=== PATIENT | female | born 1980 | race Caucasian/White ===

== ENCOUNTER 2025-03-13 07:10 | Outpatient (CLI) | payer BC, SELFPAY ==
[2025-03-13 08:45] LABS: Basophils Absolute Auto 0.1 K/mm3 (0.0-0.1); Basophils Percent Auto 0.9 % (0.2-1.2); Eosinophils Absolute Auto 0.1 K/mm3 (0-0.3); Eosinophils Percent Auto 0.9 % (0-4.4); Hematocrit 44.6 % (37.0-47.0); Immature Granulocyte Absolute 0.07 K/mm3 (0.00-0.031); Immature Granulocyte Percent A 0.5 % (0-0.5); Lymphocytes Absolute Auto 3.33 K/mm3 (0.9-3.2); Lymphocytes Percent Auto 25.1 % (18.3-44.2); Mean Corpuscular HGB Conc 31.4 g/dl (32-36); Mean Corpuscular Hemoglobin 28.2 pg (26-34); Mean Corpuscular Volume 89.7 fl (80-100); Monocytes Absolute Auto 0.9 K/mm3 (0.1-0.6); Monocytes Percent Auto 6.8 % (2.6-8.5); Neutrophils Absolute Auto 8.7 K/mm3 (1.3-6.7); Neutrophils Percent Auto 65.8 % (45.5-73.1); Platelet Count Result 360 k/mm3 (150-375); Red Blood Count 4.97 M/mm3 (4.2-5.4); Red Cell Distribution Width 16.3 % (11.5-14.5); White Blood Count 13.3 K/mm3 (4.5-10.0)
[2025-03-13 09:01] LABS: Alanine Aminotransferase 26 U/L (6-35); Albumin Level 3.9 g/dL (3.5-5.1); Alkaline Phosphatase 62 U/L (38-126); Anion Gap 10 mmol/L (4-12); Aspartate Amino Transferase 27 U/L (14-36); Bilirubin,Total 0.3 mg/dL (0.2-1.3); Blood Urea Nitrogen 11 mg/dL (7-17); Calcium 9.1 mg/dL (8.4-10.2); Carbon Dioxide 25 mmol/L (22-30); Chloride 105 mmol/L (98-107); Cholesterol 152 mg/dL (0-200); Estimated Glomerular Filt Rate > 60; Glucose 131 mg/dL (65-110); HDL Direct 31 mg/dL; Sodium 140 mmol/L (137-145); Total Protein 7.1 g/dL (6.3-8.2); Triglycerides 170 mg/dL (<150)
[2025-03-13 09:17] LABS: LDL Cholesterol Direct 92 mg/dL
[2025-03-13 10:29] LABS: Creatinine Urine 16.8 mg/dL
[2025-03-13 11:17] LABS: MALB Creatinine Ratio < 35.7 mg/g (0-30); Microalbumin Urine Random < 6.0 mg/L (0-16.7)
[2025-03-13 13:08] LABS: Hemoglobin A1C 7.5 % (<5.7)
== END 2025-03-13 07:11 | disposition home or self-care (01) ==
PROVIDERS: PCP Internal Medicine; Referring Provider Urology; Visit Provider Anesthesiology
DX: T83.721A Exposure of implanted vaginal mesh into vagina, initial encounter (principal); E11.9 Type 2 diabetes mellitus without complications; K21.9 Gastro-esophageal reflux disease without esophagitis; E78.2 Mixed hyperlipidemia; Y83.8 Other surgical procedures as the cause of abnormal reaction of the patient, or of later complication, without mention of misadventure at the time of the procedure
CPT/HCPCS: 36415; 80053; 80061; 82043; 83036; 85025; 87086

== ENCOUNTER 2025-03-16 00:30 | Day surgery (SDC) | payer BC, SELFPAY ==
[2025-03-12 14:51] VITALS: BMI 28.1
--- NOTE | 2025-03-12 15:03 | PC.NURSE ---
Report to the Outpatient Waiting Room, entrance under the green pavilion located off [facility], at time __0700__ on date _03/16/25_. Planned Procedure Time: _0900_.? Time changes happen often and if your time is changed the preop area will call you the afternoon before. - You and your visitor will be asked to self-screen and do not enter if you have any COVID symptoms. Please call surgeon if you need to reschedule. - A mask is optional within the hospital at this time. Patients may have clear liquids (water, carbonated beverages, clear teas, apple juice) until 3 hours prior to surgery with a maximum of 20 ounces. - No food from midnight until time of surgery and no smoking, or chewing tobacco (or any form of nicotine). No chewing gum, candy or mints. - Infants may have breast milk until 4 hours before surgery, infant formula 6 hours prior to surgery. - Children will be allowed to drink immediately following surgery.? If applicable, please bring a bottle or sippy cup to assist with drinking. Juice, water, soda, and popsicles are readily available.? For infants on formula, please bring formula the day of surgery.? Pacifiers are allowed. Take only the following medications with a SIP of water on the morning of surgery: _NONE DO NOT STOP ANY OF YOUR OTHER PRESCRIPTION MEDICATIONS PRIOR TO SURGERY EXCEPT THE FOLLOWING Hold all vitamins and supplements for 3 days per anesthesiologist. Medications to discontinue per physician ___NONE Date to take last dose Please no make-up, nail tristanian, hairspray, perfume, deodorant, or body powder the day of surgery.? No jewelry (including any body piercings) or valuables the day of surgery, leave them at home.? Please take a shower or bath the night before, or the morning of, surgery with an antibacterial soap.? Wear comfortable, loose fitting clothing.? Children are encouraged to wear pajamas. - Jewelry must be removed prior to entering the operating room.? Rings and piercings that are not removed may be cut off. - The hospital will not accept responsibility for valuables.? - Please leave all valuables, including medications, at home the day of surgery. If you are going home after surgery, a licensed automobile drivers must drive you home.? - NO public transportation without another adult if you receive anesthesia. - We recommend that an adult stay with you for 24 hours following discharge. - We also recommend that you do not drive, make important decision, drink alcoholic beverages, or take any drugs that were not prescribed by your health care provider for at least 24 hours after your discharge time. For Pediatric surgeries, we recommend two adults accompany the child home. Follow any additional instructions given to you from your surgeon. Telephone instructions given to _PATO_and asked if any additional questions and then verbalized understanding. Patient advised to call surgeon office or pre surgery nurse liaison [phone] if any additional questions.
--- NOTE | 2025-03-15 15:19 | P.PNAN_ITS ---
Anes - Initial Pre Proc Eval Procedure: Operation Date: 03/16/25 09:00 Proposed Procedures p Excision of Exposed Vaginal Mesh, Cystoscopy with Injection Bulking Agent - Christos Anand MD Date/Time: 03/15/25 15:19 Surgeon: Christos Anand MD Pre Op Diagnosis: Exposure of Vag Mesh Patient Data Age: 45 Gender: F Height: 1.7 m Weight: 81.5 kg Allergies Allergy/AdvReac Type Severity Reaction Status Date / Time rifapentine AdvReac Intermediate NAUSEA/VOMI Verified 03/12/25 14:41 TING aspirin AdvReac Unknown UPSET Verified 03/12/25 14:41 STOMACH Home Medications ?Medication ?Instructions ?Recorded ?Confirmed ?Type ascorbic acid (vitamin C) 500 mg 1,000 mg PO BID 03/12/25 03/12/25 History tablet (Vitamin C) empagliflozin 10 mg tablet 10 mg PO DAILY 03/12/25 03/12/25 History (Jardiance) insulin aspart U-100 100 unit/mL 1 sliding scale dose subcut AC 03/12/25 03/12/25 History (3 mL) subcutaneous pen (Novolog FlexPen U-100 Insulin aspart) insulin degludec 100 unit/mL (3 60 unit subcut BID 03/12/25 03/12/25 History mL) subcutaneous pen (Tresiba FlexTouch U-100 insulin) insulin detemir U-100 100 unit/mL 60 unit subcut BID 03/12/25 03/12/25 History (3 mL) subcutaneous pen losartan 100 mg tablet 100 mg PO HS 03/12/25 03/12/25 History metformin 1,000 mg tablet 1,000 mg PO BID 03/12/25 03/12/25 History omeprazole 40 mg capsule,delayed 40 mg PO DAILY 03/12/25 03/12/25 History release oxybutynin chloride 10 mg 10 mg PO DAILY 03/12/25 03/12/25 History tablet,extended release 24 hr semaglutide 1 mg/dose (4 mg/3 mL) 4 mg subcut WEEKLY 03/12/25 03/12/25 History subcutaneous pen injector (Ozempic) simvastatin 20 mg tablet 20 mg PO HS 03/12/25 03/12/25 History sumatriptan succinate 50 mg tablet 50 mg PO PRN PRN migraine headache 03/12/25 03/12/25 History Patient hx anesthesia problems: none Family hx anesthesia problems: none Results Review: All pre-operative results and documents have been reviewed as part of the pre- operative evaluation. [facility] Past Medical History Medical History Diabetes type 2, controlled GERD (gastroesophageal reflux disease) Hypertension Surgical History Surgical History History of tubal ligation Social History Social History Smoking packs per day: 1 Smoking cigarettes per day: 20.0 Years smoked: 20 Smoking pack-years: 20.00 Smoking status: Current every day smoker Tobacco type: cigarettes Alcohol intake: never Living arrangements: alone Anes - Eval Final PreProcedure Day of Procedure 03/15/25 15:19 Patient weight: overweight Heart: regular rate and rhythm Lungs: clear to auscultation Airway: Mallampati scale class II Neurological: alert and oriented Last oral intake: >/= 8 hours ASA classification: III Emergent: no Anesthetic plan: proceed Anesthesia type and monitoring: general GIVS and standard monitoring Results Review: All pre-operative results and documents have been reviewed as part of the pre-operative evaluation. Informed Consent: The patient's anesthetic plan and its attendant risks and benefits were discussed with the patient/family/POA. Questions were solicited and answers provided to the satisfaction of the patient/family/POA.
[2025-03-16] VITALS (7 sets, daily range): BP systolic 110–151; BP diastolic 64–91; PULSE 77–94; RESP 16–20; TEMP 36.4; O2SAT 94–99
--- NOTE | 2025-03-16 04:43 | PM.IMHP ---
H&P: HPI History of Present Illness Date/Time: 03/16/25 04:43 Chief Complaint: procedure Narrative: s/p sling. small area of mesh exposure Review of Systems Review of Systems: All systems reviewed & are unremarkable except as noted in HPI and below [facility] Past Medical History Medical History Diabetes type 2, controlled GERD (gastroesophageal reflux disease) Hypertension Surgical History Surgical History History of tubal ligation Social History Social History Smoking packs per day: 1 Smoking cigarettes per day: 20.0 Years smoked: 20 Smoking pack-years: 20.00 Smoking status: Current every day smoker Tobacco type: cigarettes Alcohol intake: never Living arrangements: alone Meds Home Medications and Allergies Home Medications ?Medication ?Instructions ?Recorded ?Confirmed ?Type ascorbic acid (vitamin C) 500 mg 1,000 mg PO BID 03/12/25 03/12/25 History tablet (Vitamin C) empagliflozin 10 mg tablet 10 mg PO DAILY 03/12/25 03/12/25 History (Jardiance) insulin aspart U-100 100 unit/mL 1 sliding scale dose subcut AC 03/12/25 03/12/25 History (3 mL) subcutaneous pen (Novolog FlexPen U-100 Insulin aspart) insulin degludec 100 unit/mL (3 60 unit subcut BID 03/12/25 03/12/25 History mL) subcutaneous pen (Tresiba FlexTouch U-100 insulin) insulin detemir U-100 100 unit/mL 60 unit subcut BID 03/12/25 03/12/25 History (3 mL) subcutaneous pen losartan 100 mg tablet 100 mg PO HS 03/12/25 03/12/25 History metformin 1,000 mg tablet 1,000 mg PO BID 03/12/25 03/12/25 History omeprazole 40 mg capsule,delayed 40 mg PO DAILY 03/12/25 03/12/25 History release oxybutynin chloride 10 mg 10 mg PO DAILY 03/12/25 03/12/25 History tablet,extended release 24 hr semaglutide 1 mg/dose (4 mg/3 mL) 4 mg subcut WEEKLY 03/12/25 03/12/25 History subcutaneous pen injector (Ozempic) simvastatin 20 mg tablet 20 mg PO HS 03/12/25 03/12/25 History sumatriptan succinate 50 mg tablet 50 mg PO PRN PRN migraine headache 03/12/25 03/12/25 History Allergies Allergy/AdvReac Type Severity Reaction Status Date / Time rifapentine AdvReac Intermediate NAUSEA/VOMI Verified 03/12/25 14:41 TING aspirin AdvReac Unknown UPSET Verified 03/12/25 14:41 STOMACH Exam Narrative: small area mesh exposure midline of ant vag wall Assessment and Plan Assessment and plan (1) Exposure of vaginal mesh through vaginal wall: Code(s): T83.721A - Exposure of implanted vaginal mesh into vagina, initial encounter Status: Acute (2) Intrinsic sphincter deficiency (ISD): Code(s): N36.42 - Intrinsic sphincter deficiency (ISD) Status: Acute Plan excision of exposed mesh. BUlking agent to lessen risk of recurrent celio
--- NOTE | 2025-03-16 04:45 | WPDHPUPDATE1 ---
History and Physical Update Update Date/Time: 03/16/25 04:45 History and Physical has been reviewed, including an updated exam of the patient. There are NO changes in the patient's condition. Risks, benefits, and alternatives have been discussed and questions answered. Patient agrees to proceed with procedure.
[2025-03-16 07:17] LABS: Glucose Point of Care 206 mg/dl (65-105)
[2025-03-16] MEDS: LACTATED RINGERS 1,000 ML 30 ML IV CONT (08:00)
[2025-03-16] MEDS: ceFAZolin 2 GM/D5W 50 ML 2 GM/50 ML BAG IVPB (08:50)
[2025-03-16] MEDS: LIDOCAINE 2% GEL UROJET 10 ML PKG MUCOUS MEM (08:50)
--- NOTE | 2025-03-16 09:02 | S_PTH ---
PATIENT: Angelita Mora LOC: [facility] U#:[id number] AGE/SX: 45/F ROOM: RE03/16/[address]: Christos Anand MD : [id number] BED: DIS: 03/16/2025 SPEC #: [id number] RECD: 03/16/25 13:19 STATUS: VALENTIN REQ #: [id number] ROXANNA: 03/16/25 09:[address]: Christos Anand DEPT: [facility] Surgical RECD BY: Jenelle Parra ENTERED: 03/16/25 13:19 SP TYPE: Surgical OTHR DR: Rip Sparks, Tissues: A - Mesh Procedures: Gross Exam Level 1
--- NOTE | 2025-03-16 09:15 | W.PM.PROC2 ---
Procedure Note - Detailed Date of Procedure 03/16/25 Pre-op Diagnosis Exposure of Vag Mesh Intrinsic sphincter deficiency Post-op Diagnosis Same Procedure Performed Excision of exposed vaginal mesh Cystoscopy with suburethral injection of implant material Surgeon Christos Anand MD Anesthesia General and Local (Lidocaine jelly) Indications This is a woman who has undergone mid urethral sling in the past she is a diabetic and is a smoker unfortunately she had an area of mesh exposure in the midline. She presents today for excision of the exposed mesh. We will do a concomitant bulking agent to decrease the risk of postoperative her recurrent stress incontinence and intrinsic sphincter deficiency. She understands risks of bleeding, infection, damage to urinary tract, inability remove the mesh, recurrent mesh exposure, incomplete cure of her stress incontinence, recurrent stress incontinence, urinary retention requiring catheterization, need for repeat procedures. She agrees to proceed Findings Area of exposed vaginal mesh excised without complication. Bulking agent uncomplicated Description of Procedure She was correctly identified. Informed consent obtained. From the operating room. She was given general anesthesia. She was placed in dorsal thigh position. She was prepped draped sterile fashion. Time-out performed. I examined the mid urethra. There was an area of mesh exposure of about 1 cm. I got a clamp behind the mesh. I excised the midline. I then dissected out laterally on both sides to remove a 2 cm portion of mesh. This was sent for gross pathologic analysis. There was no other mesh exposure in the area. There was no mesh exposure in the sulcus. I closed the vaginal defect with interrupted 2 0 Vicryl suture. I took great care not to injure the underlying urethra. There was epithelialization of the tissue underneath the mesh. I then turned my attention to the bulking agent. Her bladder was normal in appearance. There is no surgical artifact. There was no mesh in the bladder or urethra. There was no urethral bladder injury. There was no tumors or stones. Ureteral orifices were normal. I chose a site the mid urethra 2 cm distal to bladder neck. I injected bulking agent circumferentially. I used 1-1/2 syringe. There was excellent bulking effect. Her bladder was left partially full. She was awakened transferred to PACU in stable condition. Estimated Blood Loss 2 Drains No Packing No Pathology Yes (Vaginal mesh for gross examination only) Complications No immediate complications
[2025-03-16 09:25] LABS: Glucose Point of Care 156 mg/dl (65-105)
[2025-03-16] MEDS: oxyCODONE HCL (*CRX) 5 MG TAB IR PO (10:00)
== END 2025-03-16 10:53 | disposition home or self-care (01) ==
PROVIDERS: PCP Internal Medicine; Visit Provider Urology
PROC: 3E0K8GC Introduction of Other Therapeutic Substance into Genitourinary Tract, Via Natural or Artificial Opening Endoscopic (ICD-10-PCS; CPT 51715; principal; 2025-03-16 09:00)
DX: T83.721A Exposure of implanted vaginal mesh into vagina, initial encounter (principal); N36.42 Intrinsic sphincter deficiency (ISD); I10 Essential (primary) hypertension; E11.9 Type 2 diabetes mellitus without complications; K21.9 Gastro-esophageal reflux disease without esophagitis; Y83.8 Other surgical procedures as the cause of abnormal reaction of the patient, or of later complication, without mention of misadventure at the time of the procedure; Z98.51 Tubal ligation status; F17.210 Nicotine dependence, cigarettes, uncomplicated; Z79.84 Long term (current) use of oral hypoglycemic drugs; Z79.4 Long term (current) use of insulin; Z79.85 Long-term (current) use of injectable non-insulin antidiabetic drugs
CPT/HCPCS: 51715; 57295; 82948; 88300; A9270; J0690; J1100; J2003; J2250; J2405; J2704; J3010; J7120; L8606